=== PATIENT | female | born 1945 | race Caucasian/White ===

== ENCOUNTER 2016-09-23 08:00 | Outpatient (CLI) | payer MEDICARE | END 2016-09-23 23:59 | DX: E11.9 Type 2 diabetes mellitus without complications (principal); Z79.899 Other long term (current) drug therapy ==

== ENCOUNTER 2017-05-25 08:00 | Outpatient (CLI) | payer MEDICARE ==
[2017-05-25 13:59] LABS: BASOPHILS % (AUTO) 0.4 %; EOSINOPHILS # (AUTO) 0.2 10^3/uL (0.0-0.7); EOSINOPHILS % (AUTO) 2.5 %; HCT - HEMATOCRIT 38.1 % (37.0-47.0); HGB - HEMOGLOBIN 12.7 g/dL (12.0-16.0); LYMPHOCYTES # (AUTO) 1.7 10^3/uL (1.5-3.5); LYMPHOCYTES % (AUTO) 24.8 %; MEAN CORPUSCULAR HEMOGLOBIN 28.6 pg (27.0-31.0); MEAN CORPUSCULAR HGB CONC 33.4 g/dL (32.0-36.0); MEAN CORPUSCULAR VOLUME 85.6 fL (81.0-99.0); MEAN PLATELET VOLUME 9.3 fL (7.9-10.8); MONOCYTES # (AUTO) 0.7 10^3/uL (0.0-1.0); MONOCYTES % (AUTO) 10.4 %; NEUTROPHILS # (AUTO) 4.3 10^3/uL (1.5-6.6); NEUTROPHILS % (AUTO) 61.9 %; NUCLEATED RED BLOOD CELLS AUTO 0.1 /100WBC; RED BLOOD COUNT 4.44 10^6/uL (4.20-5.40); RED CELL DISTRIBUTION WIDTH 13.9 % (12.0-15.0)
[2017-05-25 14:13] LABS: ALBUMIN/GLOBULIN RATIO 1.2 (1.0-2.2); BILIRUBIN,TOTAL 0.5 mg/dL (0.2-1.0); BUN - BLOOD UREA NITROGEN 14 mg/dL (6-20); CALCIUM 9.2 mg/dL (8.5-10.3); CARBON DIOXIDE - CO2 24 mmol/L (21-32); CHLORIDE 100 mmol/L (101-111); CHOLESTEROL 146 mg/dL; CREATININE 0.8 mg/dL (0.4-1.0); GFR - MDRD 71 (>89); GLUCOSE 111 mg/dL (70-100); HDL CHOLESTEROL 48 mg/dL; HEMOGLOBIN A1C 0.98 g/dL; LDL/HDL RATIO 1.5 (<4.4); POTASSIUM 3.6 mmol/L (3.5-5.0); SODIUM 137 mmol/L (135-145); TOTAL PROTEIN 7.4 g/dL (6.7-8.2); TRIGLYCERIDES 137 mg/dL; VLDL CHOLESTEROL 27 mg/dL
== END 2017-05-25 08:01 | disposition home or self-care (01) ==
LOC: LAB.R 08:00
PROVIDERS: ATTEND Physician Assistant Medical
DX: Z79.899 Other long term (current) drug therapy (principal); E78.2 Mixed hyperlipidemia; E11.65 Type 2 diabetes mellitus with hyperglycemia; I10 Essential (primary) hypertension; Z11.59 Encounter for screening for other viral diseases; Z72.89 Other problems related to lifestyle
CPT/HCPCS: 80053; 80061; 83036; 84443; 85025; 86803

== ENCOUNTER 2017-06-15 09:55 | Outpatient (CLI) | payer MEDICARE ==
--- NOTE | 2017-06-16 10:02 | Mammography Report ---
DIGITAL SCREENING MAMMOGRAM: 06/15/2017 COMPARISON: 05/30/2015 TECHNIQUE: Bilateral digital CC and MLO projections. FINDINGS: There is extensive fatty replacement of the breast tissue. There is no dominant mass, arc hitectural distortion, skin thickening, suspicious microcalcifications, or interval change. IMPRESSION: NEGATIVE. BIRADS CATEGORY 1. SUGGEST ROUTINE ANNUAL SCREENING. STANDARD QUALIFYING STATEMENTS 1. This examination was reviewed with the aid of Computer-Aided Detection (CAD). 2. A negative or benign imaging report should not delay biopsy if clinically suspicious findings are present. Consider surgical consultation if warranted. More than 5% of cancers are not identified by i maging. 3. Dense breasts may obscure an underlying neoplasm. JOB #: [id number] EXT JOB #:[id number]
== END 2017-06-15 09:56 | disposition home or self-care (01) ==
LOC: DI 09:55
PROVIDERS: ATTEND Physician Assistant Medical
DX: Z12.31 Encounter for screening mammogram for malignant neoplasm of breast (principal)
CPT/HCPCS: 77067

== ENCOUNTER 2017-06-15 09:55 | Outpatient (CLI) | payer MEDICARE ==
--- NOTE | 2017-06-17 15:09 | DEXA Report ---
DEXA SCAN: 06/15/2017 HISTORY: Postmenopausal female on hormone replacement therapy. TECHNIQUE: Dual energy x-ray absorptiometry (DXA) was performed on a [email or web address] system. Regions measured are the AP spine, femoral neck, and, if needed, forearm. COMPARISON: None. In accordance with the International Society for Clinical Densitometry (ISCD) guidelines, data from previous exams may be reanalyzed using current recommendations and techniques. This is done to allow a more accurate basis for comparison with the current study. FINDINGS LUMBAR SPINE DATA: REGION BMD (g/cm/cm) T-SCORE Z-SCORE L1 0.804 -2.7 -2.1 L2 1.175 -0.2 0.4 L3 1.240 0.3 1.0 L4 1.242 0.4 1.0 TOTAL 1.131 -0.4 0.2 NOTE: All evaluable vertebrae are used for classification. HIP DATA: REGION BMD (g/cm/cm) T-SCORE Z-SCORE Neck 0.821 -1.6 -0.5 TOTAL 0.894 -0.9 -0.1 NOTE: The femoral neck or total proximal femur, whichever is lowest, is used for classification. IMPRESSION THE WHO CLASSIFICATION BASED ON THE INTERNATIONAL REFERENCE STANDARD: OSTEOPENIA. FRACTURE RISK: INCREASED. RECOMMENDATION: Patients with diagnosis of osteoporosis or osteopenia should have regular bone mineral density assessment. For those eligible for Medicare, routine testing is allowed once every 2 years. Testing frequency can be increased for patients who have rapidly progressing disease or for those who are receiving medical therapy to restore bone mass. COMMENT: World Health Organization (WHO) definitions for osteoporosis and osteopenia: NORMAL BMD: T-score at -1.0 or higher, fracture risk is low. OSTEOPENIA BMD: T-score between -1.0 and -2.5, fracture risk is increased. OSTEOPOROSIS BMD: T-score at -2.5 or lower, fracture risk high. National Osteoporosis Foundation recommends: 1. Obtain adequate dietary calcium (at least 1200 mg per day) and vitamin D (400 -800 international units per day). 2. Participate, as appropriate, in regular weightbearing and muscle- strengthening exercise. 3. Avoid tobacco use and reduce alcohol and caffeine intake. 4. For more detailed information see the website at www.NOF.org. MTDD
== END 2017-06-15 09:56 | disposition home or self-care (01) ==
LOC: DI 09:55
PROVIDERS: ATTEND Physician Assistant Medical
DX: M85.88 Other specified disorders of bone density and structure, other site (principal)
CPT/HCPCS: 77080

== ENCOUNTER 2017-09-15 08:00 | Outpatient (CLI) | payer MEDICARE ==
[2017-09-15 14:54] LABS: HB2 TOTAL 14.2 g/dL; HEMOGLOBIN A1C 1.27 g/dL; HEMOGLOBIN A1C % 10.3 % (4.6-6.2)
== END 2017-09-15 08:01 | disposition home or self-care (01) ==
LOC: LAB.R 08:00
PROVIDERS: ATTEND Physician Assistant Medical
DX: Z79.899 Other long term (current) drug therapy (principal); E11.65 Type 2 diabetes mellitus with hyperglycemia
CPT/HCPCS: 82947; 83036

== ENCOUNTER 2017-12-17 08:00 | Outpatient (CLI) | payer MEDICARE ==
[2017-12-17 13:20] LABS: HB2 TOTAL 13.9 g/dL; HEMOGLOBIN A1C 0.97 g/dL; HEMOGLOBIN A1C % 8.5 % (4.6-6.2)
== END 2017-12-17 08:01 | disposition home or self-care (01) ==
LOC: LAB.R 08:00
PROVIDERS: ATTEND Physician Assistant Medical
DX: E11.9 Type 2 diabetes mellitus without complications (principal); Z79.899 Other long term (current) drug therapy
CPT/HCPCS: 82947; 83036

== ENCOUNTER 2018-05-31 08:00 | Outpatient (CLI) | payer MEDICARE ==
[2018-05-31 15:58] LABS: BASOPHILS % (AUTO) 0.5 %; EOSINOPHILS # (AUTO) 0.1 10^3/uL (0.0-0.7); EOSINOPHILS % (AUTO) 1.5 %; HGB - HEMOGLOBIN 12.9 g/dL (12.0-16.0); LYMPHOCYTES # (AUTO) 1.5 10^3/uL (1.5-3.5); LYMPHOCYTES % (AUTO) 24.8 %; MEAN CORPUSCULAR HEMOGLOBIN 30.2 pg (27.0-31.0); MEAN CORPUSCULAR HGB CONC 34.7 g/dL (32.0-36.0); MEAN CORPUSCULAR VOLUME 87.2 fL (81.0-99.0); MEAN PLATELET VOLUME 9.2 fL (7.9-10.8); MONOCYTES # (AUTO) 0.6 10^3/uL (0.0-1.0); NEUTROPHILS % (AUTO) 64.2 %; PLT - PLATELET COUNT 262 10^3/uL (130-450); RED BLOOD COUNT 4.25 10^6/uL (4.20-5.40); RED CELL DISTRIBUTION WIDTH 13.7 % (12.0-15.0); WHITE BLOOD COUNT 6.2 x10^3/uL (4.8-10.8)
[2018-05-31 16:42] LABS: ALBUMIN 4.2 g/dL (3.2-5.5); ALBUMIN/GLOBULIN RATIO 1.2 (1.0-2.2); ALKALINE PHOSPHATASE 71 IU/L (42-121); ALT ALANINE AMINOTRANSFERASE 19 IU/L (10-60); AST ASPARTATE AMINOTRANSFERASE 26 IU/L (10-42); BILIRUBIN,TOTAL 0.8 mg/dL (0.2-1.0); BUN - BLOOD UREA NITROGEN 20 mg/dL (6-20); CALCIUM 9.3 mg/dL (8.5-10.3); CARBON DIOXIDE - CO2 27 mmol/L (21-32); CHLORIDE 102 mmol/L (101-111); CHOL/HDL RATIO 2.9 (<4.4); CHOLESTEROL 165 mg/dL; CREATININE 0.7 mg/dL (0.4-1.0); GFR - MDRD 82 (>89); GLUCOSE 103 mg/dL (70-100); HDL CHOLESTEROL 57 mg/dL; LDL CHOLESTEROL,CALCULATED 88 mg/dL; LDL/HDL RATIO 1.5 (<4.4); SODIUM 139 mmol/L (135-145); TOTAL PROTEIN 7.8 g/dL (6.7-8.2); VLDL CHOLESTEROL 20 mg/dL
[2018-05-31 16:59] LABS: HB2 TOTAL 13.9 g/dL; HEMOGLOBIN A1C 1.12 g/dL; HEMOGLOBIN A1C % 9.5 % (4.6-6.2)
== END 2018-05-31 08:01 | disposition home or self-care (01) ==
LOC: LAB.R 08:00
PROVIDERS: ATTEND Physician Assistant Medical
DX: Z79.899 Other long term (current) drug therapy (principal); E11.65 Type 2 diabetes mellitus with hyperglycemia; E78.2 Mixed hyperlipidemia; I10 Essential (primary) hypertension
CPT/HCPCS: 80053; 80061; 83036; 83721; 84443; 85025

== ENCOUNTER 2018-06-07 11:18 | Outpatient (CLI) | payer MEDICARE | END 2018-06-07 23:59 | LOC: LAB.R 11:18 | PROVIDERS: ATTEND Physician Assistant Medical | DX: J02.9 Acute pharyngitis, unspecified (principal) | CPT/HCPCS: 87070 ==

== ENCOUNTER 2018-09-08 08:00 | Outpatient (CLI) | payer MEDICARE ==
[2018-09-08 13:30] LABS: HB2 TOTAL 14.3 g/dL; HEMOGLOBIN A1C 1.28 g/dL; HEMOGLOBIN A1C % 10.3 % (4.6-6.2)
== END 2018-09-08 23:59 | disposition home or self-care (01) ==
LOC: LAB.R 08:00
PROVIDERS: ATTEND Physician Assistant Medical
DX: Z79.899 Other long term (current) drug therapy (principal); E11.65 Type 2 diabetes mellitus with hyperglycemia
CPT/HCPCS: 82947; 83036

== ENCOUNTER 2018-12-10 08:22 | Outpatient (CLI) | payer MEDICARE ==
[2018-12-10 09:21] LABS: CREATININE,URINE 178.7 mg/dL; MICROALBUM/CREATININE RATIO,UR 7.3 ug/mg (<30.0); MICROALBUMIN,URINE 1.3 mg/dL (0-300.0)
[2018-12-10 09:22] LABS: CALCIUM 9.6 mg/dL (8.5-10.3)
[2018-12-10 09:55] LABS: HEMOGLOBIN A1C 1.28 g/dL; HEMOGLOBIN A1C % 10.5 % (4.6-6.2)
== END 2018-12-10 08:23 | disposition home or self-care (01) ==
LOC: LAB 08:22
PROVIDERS: ATTEND Internal Medicine
DX: E11.65 Type 2 diabetes mellitus with hyperglycemia (principal)
CPT/HCPCS: 36415; 80048; 82043; 82570; 83036

== ENCOUNTER 2019-03-24 09:05 | Outpatient (CLI) | payer MEDICARE ==
[2019-03-24 09:37] LABS: HB2 TOTAL 13.1 g/dL; HEMOGLOBIN A1C 0.91 g/dL; HEMOGLOBIN A1C % 8.5 % (4.6-6.2)
== END 2019-03-24 09:06 | disposition home or self-care (01) ==
LOC: LAB 09:05
PROVIDERS: ATTEND Internal Medicine
DX: E11.65 Type 2 diabetes mellitus with hyperglycemia (principal)
CPT/HCPCS: 36415; 83036

== ENCOUNTER 2020-02-07 08:36 | Outpatient (CLI) | payer MEDICARE ==
[2020-02-07 08:58] LABS: BASOPHILS # (AUTO) 0.1 10^3/uL (0.0-0.1); BASOPHILS % (AUTO) 0.8 %; EOSINOPHILS # (AUTO) 0.2 10^3/uL (0.0-0.7); EOSINOPHILS % (AUTO) 3.1 %; HGB - HEMOGLOBIN 13.1 g/dL (12.0-16.0); LYMPHOCYTES % (AUTO) 26.5 %; MEAN CORPUSCULAR HEMOGLOBIN 30.1 pg (27.0-31.0); MEAN CORPUSCULAR HGB CONC 33.2 g/dL (32.0-36.0); MEAN CORPUSCULAR VOLUME 90.8 fL (81.0-99.0); MEAN PLATELET VOLUME 10.2 fL (7.9-10.8); MONOCYTES # (AUTO) 0.7 10^3/uL (0.0-1.0); MONOCYTES % (AUTO) 8.8 %; NEUTROPHILS # (AUTO) 4.5 10^3/uL (1.5-6.6); NEUTROPHILS % (AUTO) 60.4 %; PLT - PLATELET COUNT 291 10^3/uL (130-450); RED BLOOD COUNT 4.35 10^6/uL (4.20-5.40); WHITE BLOOD COUNT 7.4 x10^3/uL (4.8-10.8)
[2020-02-07 09:18] LABS: HB2 TOTAL 13.9 g/dL; HEMOGLOBIN A1C 1.09 g/dL; HEMOGLOBIN A1C % 9.3 % (4.6-6.2)
[2020-02-07 09:19] LABS: BUN - BLOOD UREA NITROGEN 23 mg/dL (6-20); CALCIUM 9.6 mg/dL (8.5-10.3); CARBON DIOXIDE - CO2 26 mmol/L (21-32); CHLORIDE 99 mmol/L (101-111); CHOL/HDL RATIO 3.7 (<4.4); CHOLESTEROL 172 mg/dL; GLUCOSE 176 mg/dL (70-100); HDL CHOLESTEROL 47 mg/dL; LDL CHOLESTEROL,CALCULATED 95 mg/dL; SODIUM 136 mmol/L (135-145); VLDL CHOLESTEROL 30 mg/dL
== END 2020-02-07 08:37 | disposition home or self-care (01) ==
LOC: LAB 08:36
PROVIDERS: ATTEND Physician Assistant
DX: I10 Essential (primary) hypertension (principal); E78.2 Mixed hyperlipidemia; E11.9 Type 2 diabetes mellitus without complications
CPT/HCPCS: 36415; 80048; 80061; 82043; 83036; 83721; 85025

== ENCOUNTER 2020-04-01 13:17 | Outpatient (CLI) | payer MEDICARE ==
--- NOTE | 2020-04-03 08:15 | Mammography Report ---
BILATERAL DIGITAL SCREENING MAMMOGRAM 3D/2D: 04/01/2020 CLINICAL: Routine screening. Comparison is made to exams dated: 06/15/2017 mammogram and 05/30/2015 mammogram - [facility]. The tissue of both breasts is predominantly fatty. No significant masses, calcifications, or other findings are seen in either breast. There has been no significant interval change. IMPRESSION: NEGATIVE There is no mammographic evidence of malignancy. A 1 year screening mammogram is recommended. This exam was interpreted at Station ID: [id number]. NOTE: For mammograms, a report in lay terms will be sent to the patient. Approximately 15% of breast malignancies will not be visualized mammographically. In the management of a palpable breast mass, a negative mammogram must not discourage biopsy of a clinically suspicious lesion. Electronically Signed By: Marvin Booth M.D. aty/penrad:04/01/2020 18:25:46 ACR BI-RADS Category 1: Negative 3341F PARENCHYMAL PATTERN: (F) - The breast(s) demonstrate(s) diffuse fatty replacement. BI-RADS CATEGORY: (1) - 1 RECOMMENDATION: (ANNUAL) - Recommend routine annual screening mammography. [id number] 1 year screening LATERALITY: (B)
== END 2020-04-01 13:18 | disposition home or self-care (01) ==
LOC: DI.N 13:17
DX: Z12.31 Encounter for screening mammogram for malignant neoplasm of breast (principal)
CPT/HCPCS: 77063; 77067

== ENCOUNTER 2021-07-03 08:00 | Outpatient (CLI) | payer MEDICARE | END 2021-07-03 23:59 | LOC: LAB.N 08:00 | PROVIDERS: ATTEND Physician Assistant | DX: R05.9 Cough, unspecified (principal); Z20.822 Contact with and (suspected) exposure to COVID-19 ==

== ENCOUNTER 2021-07-14 21:21 | Emergency (ER) | payer MEDICARE ==
--- NOTE | 2021-07-14 23:48 | ED Physician Documentation ---
PD HPI UPPER EXT INJURY - Stated complaint Stated Complaint: L ARM PX - Chief complaint Chief Complaint: Ext Problem - History obtained from History obtained from: Patient - History of Present Illness Location: Left, Shoulder Type of injury: Fall Where injury occurred: Home Timing - onset: Enter time (21:00), Today Timing - details: Abrupt onset Pain level now: 8 Improved by: Rest Worsened by: Moving, Palpating Associated symptoms: No: Weakness, Numbness Contributing factors: No: Anticoagulated Recently seen: Not recently seen - Additonal information Additional information: slipped on ice while walking up steps to her front door at approximately 9 PM tonight. She landed on her left side, c/o sudden onset left shoulder pain that is exacerbated with movement Review of Systems Musculoskeletal: reports: Joint pain (left shoulder). denies: Neck pain, Back pain Neurologic: denies: Focal weakness, Numbness, Headache, Head injury, LOC PD PAST MEDICAL HISTORY - Past Medical History Past Medical History: Yes Cardiovascular: Hypertension, High cholesterol Endocrine/Autoimmune: Type 2 diabetes Musculoskeletal: Osteoarthritis, Other - Past Surgical History Past Surgical History: No - Present Medications Home Medications: Ambulatory Orders Medication Instructions Recorded Confirmed Glipizide [Glipizide Xl] 5 mg PO QDBREAKFAST 02/28/16 02/28/16 Metformin HCl 1,000 mg PO BID 02/28/16 02/28/16 Rosuvastatin Calcium 2.5 mg PO Q2D 02/28/16 02/28/16 hydroCHLOROthiazide 12.5 mg PO QDBREAKFAST 02/28/16 02/28/16 [Hydrochlorothiazide] lisinopriL [Lisinopril] 10 mg PO DAILY 02/28/16 02/28/16 - Allergies Allergies/Adverse Reactions: Allergies Allergy/AdvReac Type Severity Reaction Status Date / Time No Known Drug Allergies Allergy Verified 07/14/21 21:41 - Social History Does the pt smoke?: No Smoking Status: Never smoker Does the pt drink ETOH?: No Does the pt have substance abuse?: No - Immunizations Immunizations are current?: Yes PD ED PE NORMAL - Vitals Vital signs reviewed: Yes - General General: Alert and oriented X 3, No acute distress, Well developed/nourished - HEENT HEENT: Atraumatic - Respiratory Respiratory: No respiratory distress, Clear bilaterally - Neuro Neuro: Other (NVI distal LUE (5/5 wrist flexion/extension, finger abduction; LTS intact)) PD ED PE EXPANDED - Extremities Extremities: Tenderness, Limited ROM, Left shoulder Results - Vitals Vitals: Oxygen O2 Source Room air - Rads (name of study) left shoulder xrays Radiology: Prelim report reviewed, See rad report left shoulder CT Radiology: Prelim report reviewed, See rad report PD MEDICAL DECISION MAKING - ED course Complexity details: reviewed results, re-evaluated patient, considered differential, d/w patient ED course: c/o left shoulder pain after falling on icy stairs tonight. plain-film xrays are inconclusive (fracture vs severe DJD) and thus CT of the left shoulder performed. CT demonstrates shoulder fracture, nondisplaced. Sling placed. She reports adequate pain relief with ibuprofen 600mg (given in ED) and declines anything stronger. She has an outpatient appointment with primary care provider already scheduled for later this morning (to discuss ongoing sinusitis sympto ms), and can obtain appropriate referral at that time as well as reconsider need for stronger prescription pain medication Departure - Departure Disposition: 01 Home, Self Care Clinical Impression: Shoulder fracture, left Qualifiers: Encounter type: initial encounter Fracture type: closed Qualified Code(s): S42.92XA - Fracture of left shoulder girdle, part unspecified, initial encounter for closed fracture Condition: Good Instructions: ED Fx Shoulder, ED Sling Comments: Follow up with your primary care provider this morning as scheduled. You will l ikely need a referral to an orthopedic surgeon regarding the left shoulder fracture. The radiologist's interpretation of your CT is: "Complete nondisplaced transverse fracture surgical neck with no significant foreshortening or angulation deformity. Fracture line extends to the greater tuberosity with no displacement. Glenohumeral joint remains congruent although there is advanced osteoarthritic changes as described" Discharge Date/Time: 07/15/21 05:36
--- NOTE | 2021-07-15 01:15 | XRAY Report ---
PROCEDURE: Shoulder 3 View LT INDICATIONS: fall, tenderness and pain TECHNIQUE: 3 views of the shoulder were acquired. COMPARISON: None. FINDINGS: Bones: There is mild bony irregularity of the greater tuberosity with prior represent degenerative c hanges or a minimally displaced fracture. Severe degeneration is demonstrated at the glenohumeral izzy nt with prominent inferior osteophytosis. There is moderate degeneration of the acromioclavicular izzy nt. Visualized ribs appear intact. Soft tissues: No suspicious soft tissue calcifications. IMPRESSION: 1. Bony irregularity of the greater tuberosity may represent sequelae of degenerative changes or a mi nimally displaced fracture. If clinically indicated, further evaluation may be obtained with CT. 2. Severe glenohumeral joint degeneration and moderate acromioclavicular joint degeneration. Reviewed by: Soham Mariee MD on 07/15/2021 1:14 AM PST Approved by: Soham Mariee MD on 07/15/2021 1:14 AM PST Station ID: [id number]
[2021-07-15] MEDS ORDERED: IBUPROFEN 600 MG TABLET PO STA (01:51)
[2021-07-15 05:36] VITALS: BP 145/72
--- NOTE | 2021-07-15 08:00 | CT Report ---
PROCEDURE: UPPER EXTREMITY WO - LT INDICATIONS: fall, left shoulder injury, inconclusive xrays TECHNIQUE: Noncontrast 3 mm axial sections acquired of the left shoulder, with coronal and sagittal reformats. COMPARISON: None. FINDINGS: Image quality: Excellent. Bones: There is a nondisplaced fracture through the surgical neck of the humerus in near overall [place] tomic alignment. Fracture involves the greater tuberosity. No other fractures. No dislocations. Advan ever clinical humeral joint degenerative arthritis with significant joint space loss and large osteoph yte. Soft tissues: Unremarkable IMPRESSION: 1. Transverse fracture through the surgical neck of the humerus with near overall anatomic alignment. Fracture involves the greater tuberosity. 2. Advanced degenerative arthritis of the glenohumeral joint. Findings are concordant with preliminary interpretation provided by [facility]. Reviewed by: Nitesh Henriquez MD on 07/15/2021 7:58 AM PST Approved by: Nitesh Henriquez MD on 07/15/2021 7:58 AM PST Station ID: [id number]
== END 2021-07-15 05:36 | disposition home or self-care (01) ==
LOC: ED 21:21 → SUPCPDRO 21:21 → ED 07-15 05:36
DX: S42.92XA Fracture of left shoulder girdle, part unspecified, initial encounter for closed fracture (principal); W00.9XXA Unspecified fall due to ice and snow, initial encounter; Y92.009 Unspecified place in unspecified non-institutional (private) residence as the place of occurrence of the external cause; E11.9 Type 2 diabetes mellitus without complications; Z79.84 Long term (current) use of oral hypoglycemic drugs
CPT/HCPCS: 73030; 73200; 99283; A9270

== ENCOUNTER 2021-09-09 09:52 | Outpatient (CLI) | payer MEDICARE ==
--- NOTE | 2021-09-09 15:46 | DEXA Report ---
PROCEDURE: Dexa Spine and/or Hip INDICATIONS: SCREENING FOR OSTEOPOROSIS TECHNIQUE: Dual energy x-ray absorptiometry (DXA) was performed on a [employer] System. Regions measur ed are the AP Spine, femoral neck, and if needed forearm. COMPARISON: DEXA 06/15/2017. FINDINGS: Lumbar Spine: Bone Mineral Density 1.246 g/cm/cm,T score 0.5, there has been significant interval increase. Left Hip: Bone Mineral Density 0.899 g/cm/cm, T score -0.9, no significant change. Left Femoral Neck: Bone Mineral Density 0.844 g/cm/cm, T score -1.4, osteopenia. (T score greater or equal to -1.0: NORMAL) (T score from -1.1 to -2.4: OSTEOPENIA) (T score less than or equal to -2.5 to: OSTEOPOROSIS) Impression: Lumbar spine is within normal limits. Significant interval increase in bone mineral density. Left femoral neck osteopenia. Patients with diagnosis of osteoporosis or osteopenia should have regular bone mineral density assess ment. For those eligible for Medicare, routine testing is allowed once every 2 years. Testing frequ ency can be increased for patients who have rapidly progressing disease or for those who are receivin g medical therapy to restore bone mass. Reviewed by: Omega You MD on 09/09/2021 3:44 PM PST Approved by: Omega You MD on 09/09/2021 3:44 PM PST Station ID: [id number]
== END 2021-09-09 09:53 | disposition home or self-care (01) ==
LOC: DI 09:52
PROVIDERS: ATTEND Registered Nurse
DX: Z13.820 Encounter for screening for osteoporosis (principal); M85.88 Other specified disorders of bone density and structure, other site; Z78.0 Asymptomatic menopausal state